=== PATIENT | female | born 1995 | race Caucasian/White ===

== ENCOUNTER → 2016-05-28 | Outpatient (CLI) | payer OTHER | END | disposition home or self-care (01) | LOC: M RAD 12:06 | PROVIDERS: ATTEND Surgery | DX: R22.2 Localized swelling, mass and lump, trunk (principal) ==

== ENCOUNTER → 2016-05-28 | Outpatient (CLI) | payer OTHER ==
[~2016-05-28] MED LIST: GASTROGRAFIN SOLUTION 30ML (Q9963) As Ordered ONE; ISOVUE-370 76% 100ML VIAL (Q9967) As Ordered ONE
--- NOTE | 2016-05-28 15:49 | REP ---
CT study of the pelvis with IV and oral contrast: History: Localized swelling. Comparison is made with today's pelvic sonography: CT contrast dose: 100 ml of Isovue [address] findings: Digital preliminary commercial teller radiograph shows an unremarkable bowel gas pattern. The urinary bladder is rather distended reaching nearly to the umbilicus. Its dimensions are 14.9 cm craniocaudal by 7.7 cm anterior to posterior by 9.7 cm medial to lateral. The uterus is tipped somewhat to the left, but unremarkable. There is a 3.5 cm cystic area in the right ovary. No left adnexal pathology is appreciated. No free fluid is seen. A portion of normal appearing appendix is seen at the superior aspect of the field of view on the right side. No abdominal wall defect is seen. No mass or adenopathy is observed. Small and large intestinal bowel loops are unremarkable. No bony destructive lesion is seen. There is a low density oval-shaped lesion consistent with a cyst in the soft tissues just distal to and posterior to the tip of the coccyx. This may be a pilonidal cyst. It measures 4.3 by 3.4 x 2.3 cm. It extends to the overlying skin just to the right of the gluteal crease. No surrounding inflammation. Impression: Dilated urinary bladder at the time of this scan. 3.5 cm low density cystic lesion right ovary. There is an apparent pilonidal cyst just to the right of midline 4.3 cm in greatest diameter at the tip of the coccyx. Signed by Dkue Nicholson MD 05/28/2016 04:23 P
--- NOTE | 2016-05-28 15:58 | REP ---
Pelvic sonography: History: Polycystic ovary disease. Irregular bleeding. Findings: Transabdominal and transvaginal scanning are performed. Uterine dimensions are normal at 5.9 x 2.8 x 4.0 cm. Endometrial echo is 0.8 cm thick and centrally placed. A small quantity of fluid is seen in the cul-de-sac. No focal uterine mass lesion is seen. The right ovary measures 3.5 x 2.9 x 3.6 cm. Its Doppler flow is normal with resistive index 0.68. There is a 3.1 x 2.9 x 2.2 cm cyst in the right ovary, which appears simple sonographically. In the remainder of the right ovary there are multiple peripherally located tiny cysts. The left ovary measures 2.3 x 2.2 x 1.6 cm. It has many small follicles within it as well. Its Doppler flow is normal. Resistive index 0.72. Impression: 3.1 cm unilocular simple cyst right ovary. No other abnormality. Signed by Duke Nicholson MD 05/28/2016 04:24 P
== END | disposition home or self-care (01) ==
LOC: M RAD 12:14
PROVIDERS: ATTEND Obstetrics & Gynecology
DX: Z11.3 Encounter for screening for infections with a predominantly sexual mode of transmission (principal); N93.9 Abnormal uterine and vaginal bleeding, unspecified; E28.2 Polycystic ovarian syndrome; L05.91 Pilonidal cyst without abscess
CPT/HCPCS: 72193; 76830; 76856; 87491; 87591; 93976; Q9963; Q9967

== ENCOUNTER → 2016-08-30 | Day surgery (SDC) | payer OTHER ==
[~2016-08-30] VITALS: Ht 157.5 cm; Wt 61.2 kg
[~2016-08-30] MED LIST changes: -GASTROGRAFIN SOLUTION 30ML (Q9963) As Ordered ONE; -ISOVUE-370 76% 100ML VIAL (Q9967) As Ordered ONE; +LIDOCAINE 2% INJ 100 MG/5 ML SDV (FOR ANES.) As Ordered ONE; +LIDOCAINE W/EPINEPHRINE 1% 20ML VIAL As Ordered ONE; +LR 1,000 ML IV SCH; +METOCLOPRAMIDE INJ 10MG/2ML VIAL (J2765) IV PRN; +MIDAZOLAM INJ 2 MG/2 ML VIAL (J2250) As Ordered ONE; +NORCO, ANEXSIA 5/325MG TABLET (HYDROcodone/ACETAMINOPHEN) PO PRN; +ONDANSETRON 4MG/2ML VIAL (J2405) IV PRN; +PERCOCET 5MG/325MG TAB PO PRN; +PROPOFOL 200 MG/20 ML VIAL As Ordered ONE; +SPIR25TA2 PO; +fentaNYL 100 MCG/2 ML INJECTION (J3010) As Ordered ONE; +fentaNYL 100 MCG/2 ML INJECTION (J3010) IV PRN
[2016-08-30 06:38] LABS: CONTROL LINE UCG INT CTR LINE PRESENT
[2016-08-30 10:30] VITALS: BP 117/63
--- NOTE | 2016-08-30 17:00 | RO ---
DATE OF PROCEDURE: 08/30/2016 PREOPERATIVE DIAGNOSIS: Gluteal mass. POSTOPERATIVE DIAGNOSIS: Gluteal mass. PROCEDURE: Excision of gluteal mass. SURGEON: Dr. Eduardo Enciso PROPOSAL MANAGER: None. ANESTHESIA: Spinal COMPLICATIONS: None. ESTIMATED BLOOD LOSS: 5 mL. INDICATIONS FOR PROCEDURE: The patient is a 21-year-old female who presents with a lump just off of midline of her gluteus. The mass has increased in size over the last few weeks. Recommendation was to proceed with excision. Risks and benefits of the procedure not limited to but including bleeding, infection and need for further surgery or procedure were discussed in detail with the patient. Informed consent was obtained and procedure was planned. DESCRIPTION OF PROCEDURE: The patient was brought back to operating room one, after sufficient spinal sedation, she was placed in the prone position. Next, the presacral area was sterilely prepped and draped with Betadine. Next, time-out was done to confirm proper patient, proper procedure. Following that, a 3 cm incision was made overlying the center of this lesion, cyst wall was encountered. Elliptical incision was then created around a 2 cm area where it was connected to the skin surface. Once this was created, the cyst was carefully dissected free circumferentially to a depth of about 4 cm. It appeared to come just lateral from the sacrum. Cyst was removed intact. There was no spillage of any contents. Once the cyst was removed, electrocautery was used to control hemostasis. The subcutaneous tissues were reapproximated with interrupted #3-0 Vicryl subcuticular sutures, interrupted #3-0 nylon suture was then used to approximate the skin edges. Cyst ended up measuring about 2 x 4-1/2 cm in size. The patient tolerated the procedure well and was sent to post-anesthesia care unit (PACU) in stable condition.
== END ==
LOC: M SDC 06:03
PROVIDERS: ATTEND Surgery
DX: L72.0 Epidermal cyst (principal); J00 Acute nasopharyngitis [common cold]; Z79.899 Other long term (current) drug therapy
CPT/HCPCS: 11402; 12031; 84703; 88304; J0690; J2250; J3010

== ENCOUNTER → 2016-11-24 | Outpatient (CLI) | payer OTHER ==
[~2016-11-24] MED LIST changes: -LIDOCAINE 2% INJ 100 MG/5 ML SDV (FOR ANES.) As Ordered ONE; -LIDOCAINE W/EPINEPHRINE 1% 20ML VIAL As Ordered ONE; -LR 1,000 ML IV SCH; -METOCLOPRAMIDE INJ 10MG/2ML VIAL (J2765) IV PRN; -MIDAZOLAM INJ 2 MG/2 ML VIAL (J2250) As Ordered ONE; -NORCO, ANEXSIA 5/325MG TABLET (HYDROcodone/ACETAMINOPHEN) PO PRN; -ONDANSETRON 4MG/2ML VIAL (J2405) IV PRN; -PERCOCET 5MG/325MG TAB PO PRN; -PROPOFOL 200 MG/20 ML VIAL As Ordered ONE; -fentaNYL 100 MCG/2 ML INJECTION (J3010) As Ordered ONE; -fentaNYL 100 MCG/2 ML INJECTION (J3010) IV PRN
[2016-11-24 16:39] LABS: POTASSIUM SERUM 4.5 MEQ/L (3.5-5.1)
== END ==
LOC: M WUC 12:08
PROVIDERS: ATTEND Nurse Practitioner Family
DX: L70.0 Acne vulgaris (principal); Z51.81 Encounter for therapeutic drug level monitoring; Z79.899 Other long term (current) drug therapy

== ENCOUNTER → 2017-06-05 | Outpatient (CLI) | payer OTHER ==
[2017-06-05 16:58] LABS: BASO # 0.1 10^3/uL (0.0-0.2); BASO % 0.4 % (0.0-1.0); EOS # 0.1 10^3/uL (0.0-0.50); EOS % 0.7 % (0.0-3.0); HEMATOCRIT 43.2 % (36.0-47.0); HEMOGLOBIN 14.7 g/dl (12.0-16.0); IMMATURE GRANULOCYTE % 0.3 % (0-3.0); LYMPH # 2.1 10^3/uL (1.5-6.5); LYMPH % 17.5 % (24.0-44.0); MEAN CORPUSCULAR HEMOGLOBIN 31.5 pg (27.0-33.0); MEAN CORPUSCULAR VOLUME 92.5 fl (80.0-96.0); MONO # 0.7 10^3/uL (0.0-0.8); MONO % 6.1 % (0.0-5.0); PLATELET COUNT, AUTOMATED 234 10^3/uL (150-450); RED BLOOD COUNT 4.67 10^6/uL (4.00-5.40); RED CELL DISTRIBUTION WIDTH 12.1 % (11.5-14.5)
[2017-06-05 17:14] LABS: ALBUMIN 3.8 GM/DL (3.2-5.2); ALBUMIN/GLOBULIN RATIO 1.15 (1.00-1.93); ALKALINE PHOSPHATASE 56 U/L (45-117); ALT/SGPT 15 U/L (12-78); ANION GAP 7 MEQ/L (8-16); AST/SGOT 12 U/L (7-37); BILIRUBIN,TOTAL 0.4 MG/DL (0.2-1.0); BLOOD UREA NITROGEN 11 MG/DL (7-18); CARBON DIOXIDE LEVEL 29 MEQ/L (21-32); CHLORIDE LEVEL 105 MEQ/L (98-107); CREATININE FOR GFR 0.55 MG/DL (0.55-1.30); FREE T4 0.84 NG/DL (0.78-1.33); GLUCOSE, FASTING 78 MG/DL (70-100); POTASSIUM SERUM 4.7 MEQ/L (3.5-5.1); SODIUM LEVEL 141 MEQ/L (136-145); TOTAL PROTEIN 7.1 GM/DL (6.4-8.2)
[2017-06-08 00:07] LABS: EBV VIRAL CAPSID AG IgM <36.0 U/mL (0.0-35.9)
== END ==
LOC: M ADAMS 12:52
DX: R53.83 Other fatigue (principal)
CPT/HCPCS: 84443

== ENCOUNTER → 2017-09-08 | Outpatient (CLI) | payer OTHER ==
[2017-09-08 19:49] LABS: BASO % 0.4 % (0.0-1.0); EOS # 0.1 10^3/uL (0.0-0.50); EOS % 0.7 % (0.0-3.0); HEMATOCRIT 40.2 % (36.0-47.0); HEMOGLOBIN 13.7 g/dl (12.0-15.5); IMMATURE GRANULOCYTE % 0.1 % (0-3.0); LYMPH # 2.9 10^3/uL (1.5-6.5); LYMPH % 34.8 % (24.0-44.0); MEAN CORPUSCULAR HEMOGLOBIN 32.2 pg (27.0-33.0); MEAN CORPUSCULAR HGB CONC 34.1 g/dl (32.0-36.5); MEAN CORPUSCULAR VOLUME 94.4 fl (80.0-96.0); MONO # 0.7 10^3/uL (0.0-0.8); MONO % 8.2 % (0.0-5.0); NEUTROPHILS # 4.7 10^3/uL (1.8-7.7); NEUTROPHILS % 55.8 % (36.0-66.0); PLATELET COUNT, AUTOMATED 206 10^3/uL (150-450); RED BLOOD COUNT 4.26 10^6/uL (4.00-5.40); RED CELL DISTRIBUTION WIDTH 11.9 % (11.5-14.5); WHITE BLOOD COUNT 8.4 10^3/uL (4.0-10.0)
[2017-09-08 20:16] LABS: TOTAL 25(OH) VITAMIN D 19.7 NG/ML (30.0-100.0)
[2017-09-08 20:17] LABS: ALBUMIN 3.7 GM/DL (3.2-5.2); ALBUMIN/GLOBULIN RATIO 1.16 (1.00-1.93); ALKALINE PHOSPHATASE 48 U/L (45-117); ALT/SGPT 23 U/L (12-78); ANION GAP 6 MEQ/L (8-16); AST/SGOT 14 U/L (7-37); BILIRUBIN,TOTAL 0.3 MG/DL (0.2-1.0); BLOOD UREA NITROGEN 12 MG/DL (7-18); CALCIUM LEVEL 8.7 MG/DL (8.5-10.1); CARBON DIOXIDE LEVEL 29 MEQ/L (21-32); CHLORIDE LEVEL 106 MEQ/L (98-107); CREATININE FOR GFR 0.62 MG/DL (0.55-1.30); FREE T4 0.83 NG/DL (0.76-1.46); GLOMERULAR FILTRATION RATE > 60.0 (>60); GLUCOSE, FASTING 79 MG/DL (70-100); SODIUM LEVEL 141 MEQ/L (136-145); TOTAL PROTEIN 6.9 GM/DL (6.4-8.2)
[2017-09-15 14:16] LABS: STREP PNEUMO TYPE 1 3.5 ug/mL (>1.3); STREP PNEUMO TYPE 12F 0.4 ug/mL (>1.3); STREP PNEUMO TYPE 14 5.3 ug/mL (>1.3); STREP PNEUMO TYPE 18C 1.8 ug/mL (>1.3); STREP PNEUMO TYPE 19A 4.1 ug/mL (>1.3); STREP PNEUMO TYPE 19F 8.4 ug/mL (>1.3); STREP PNEUMO TYPE 23F 2.4 ug/mL (>1.3); STREP PNEUMO TYPE 3 1.1 ug/mL (>1.3); STREP PNEUMO TYPE 4 0.5 ug/mL (>1.3); STREP PNEUMO TYPE 6B 22.6 ug/mL (>1.3); STREP PNEUMO TYPE 7F 0.8 ug/mL (>1.3); STREP PNEUMO TYPE 8 2.4 ug/mL (>1.3); STREP PNEUMO TYPE 9N 1.1 ug/mL (>1.3); STREP PNEUMO TYPE 9V 2.8 ug/mL (>1.3)
== END ==
LOC: M WUC 16:44
DX: R53.83 Other fatigue (principal)
CPT/HCPCS: 84443

== ENCOUNTER → 2017-11-03 | Outpatient (REF) | payer OTHER | LOC: M LAB REF 16:45 | DX: J02.9 Acute pharyngitis, unspecified (principal) | CPT/HCPCS: 87081 ==

== ENCOUNTER → 2017-12-08 | Outpatient (CLI) | payer OTHER ==
[2017-12-08 19:38] LABS: ANION GAP 7 MEQ/L (8-16); CARBON DIOXIDE LEVEL 30 MEQ/L (21-32); CHLORIDE LEVEL 105 MEQ/L (98-107); POTASSIUM SERUM 4.1 MEQ/L (3.5-5.1); SODIUM LEVEL 142 MEQ/L (136-145)
== END ==
LOC: M WUC 16:11
DX: Z51.81 Encounter for therapeutic drug level monitoring (principal); Z79.899 Other long term (current) drug therapy; L70.0 Acne vulgaris
CPT/HCPCS: 80051

== ENCOUNTER → 2018-01-24 | Outpatient (CLI) | payer OTHER ==
[2018-01-24 19:25] LABS: BASO % 0.1 % (0.0-1.0); EOS % 0.5 % (0.0-3.0); HEMATOCRIT 39.5 % (36.0-47.0); HEMOGLOBIN 13.3 g/dl (12.0-15.5); IMMATURE GRANULOCYTE % 0.3 % (0-3.0); LYMPH # 2.8 10^3/uL (1.5-6.5); LYMPH % 35.4 % (24.0-44.0); MEAN CORPUSCULAR HEMOGLOBIN 31.6 pg (27.0-33.0); MEAN CORPUSCULAR HGB CONC 33.7 g/dl (32.0-36.5); MEAN CORPUSCULAR VOLUME 93.8 fl (80.0-96.0); MONO # 0.5 10^3/uL (0.0-0.8); MONO % 6.3 % (0.0-5.0); NEUTROPHILS # 4.5 10^3/uL (1.8-7.7); NEUTROPHILS % 57.4 % (36.0-66.0); PLATELET COUNT, AUTOMATED 183 10^3/uL (150-450); RED BLOOD COUNT 4.21 10^6/uL (4.00-5.40); WHITE BLOOD COUNT 7.8 10^3/uL (4.0-10.0)
== END ==
LOC: M SMT 15:23
DX: Z13.0 Encounter for screening for diseases of the blood and blood-forming organs and certain disorders involving the immune mechanism (principal)

== ENCOUNTER → 2018-09-13 | Outpatient (REF) | payer OTHER ==
[~2018-09-13] MED LIST changes: +SPIR-10 PO; -SPIR25TA2 PO
[2018-09-13 22:36] LABS: CHLAMYDIA DNA AMPLIFICATION NEGATIVE (NEGATIVE); GC DNA AMPLIFICATION NEGATIVE (NEGATIVE)
== END ==
LOC: M LAB REF 17:05
PROVIDERS: ATTEND Obstetrics & Gynecology
DX: Z11.3 Encounter for screening for infections with a predominantly sexual mode of transmission (principal)

== ENCOUNTER → 2019-08-01 | Outpatient (REF) | payer OTHER | LOC: M LAB REF 16:43 | PROVIDERS: ATTEND Physician Assistant | DX: J02.9 Acute pharyngitis, unspecified (principal) ==

== ENCOUNTER → 2019-09-03 | Outpatient (REF) | payer OTHER ==
[2019-09-03 17:50] LABS: BASO % 0.5 % (0.0-1.0); EOS # 0.1 10^3/uL (0.0-0.5); EOS % 0.8 % (0.0-3.0); HEMATOCRIT 40.6 % (36.0-47.0); HEMOGLOBIN 14.2 g/dl (12.0-15.5); LYMPH # 2.6 10^3/uL (1.5-5.0); LYMPH % 35.7 % (24.0-44.0); MEAN CORPUSCULAR HEMOGLOBIN 32.9 pg (27.0-33.0); MEAN CORPUSCULAR VOLUME 94.2 fl (80.0-96.0); MONO # 0.5 10^3/uL (0.0-0.8); MONO % 6.9 % (0.0-5.0); NEUTROPHILS # 4.1 10^3/uL (1.5-8.5); NEUTROPHILS % 55.8 % (36.0-66.0); PLATELET COUNT, AUTOMATED 194 10^3/uL (150-450); RED BLOOD COUNT 4.31 10^6/uL (4.00-5.40); WHITE BLOOD COUNT 7.4 10^3/uL (4.0-10.0)
[2019-09-03 17:59] LABS: APPEARANCE, URINE CLEAR (CLEAR); BACTERIA, URINE AUTO NEGATIVE (NEGATIVE); BILIRUBIN, URINE AUTO NEGATIVE (NEGATIVE); BLOOD, URINE BLOOD NEGATIVE (NEGATIVE); COLOR, URINE COLORLESS (YELLOW); GLUCOSE, URINE (UA) AUTO NEGATIVE (NEGATIVE); KETONE, URINE AUTO NEGATIVE (NEGATIVE); LEUKOCYTE ESTERASE, URINE AUTO NEGATIVE (NEGATIVE); NITRITE, URINE AUTO NEGATIVE (NEGATIVE); PROTEIN, URINE AUTO NEGATIVE (NEGATIVE); RBC, URINE AUTO 0 /HPF (0-3); SPECIFIC GRAVITY URINE AUTO 1.003 (1.002-1.035); SQUAMOUS EPITHELIAL CELL UR AU 0 /HPF (0-6); UROBILINOGEN, URINE AUTO 0.2 mg/dL (0.0-2.0); WBC, URINE AUTO 0 /HPF (0-3)
[2019-09-06 00:06] LABS: G6PD2 4.38 x10E6/uL (3.77-5.28)
== END ==
LOC: M LABDRWAD 16:18
PROVIDERS: ATTEND Physician Assistant
DX: Z71.84 Encounter for health counseling related to travel (principal); Z00.01 Encounter for general adult medical examination with abnormal findings

== ENCOUNTER → 2019-09-03 | Outpatient (REF) | payer OTHER ==
[2019-09-03 17:46] LABS: POTASSIUM SERUM 4.4 MEQ/L (3.5-5.1)
== END ==
LOC: M LABDRWAD 16:21
PROVIDERS: ATTEND Nurse Practitioner Family
DX: L70.0 Acne vulgaris (principal); Z51.81 Encounter for therapeutic drug level monitoring; Z79.899 Other long term (current) drug therapy

== ENCOUNTER → 2021-10-21 | Outpatient (REF) | payer OTHER ==
[2021-10-21 17:53] LABS: BASO # 0.1 10^3/uL (0.0-0.2); BASO % 0.7 % (0.0-1.0); EOS % 0.5 % (0.0-3.0); HEMATOCRIT 42.6 % (36.0-47.0); HEMOGLOBIN 14.3 g/dl (12.0-15.5); LYMPH # 2.6 10^3/uL (1.5-5.0); LYMPH % 34.6 % (24.0-44.0); MEAN CORPUSCULAR HEMOGLOBIN 31.8 pg (27.0-33.0); MEAN CORPUSCULAR HGB CONC 33.6 g/dl (32.0-36.5); MEAN CORPUSCULAR VOLUME 94.9 fl (80.0-96.0); MONO # 0.5 10^3/uL (0.0-0.8); MONO % 6.7 % (2.0-8.0); NEUTROPHILS # 4.4 10^3/uL (1.5-8.5); NEUTROPHILS % 57.2 % (36.0-66.0); RED BLOOD COUNT 4.49 10^6/uL (4.00-5.40); WHITE BLOOD COUNT 7.6 10^3/uL (4.0-10.0)
[2021-10-21 17:54] LABS: ALBUMIN 4.1 GM/DL (3.2-5.2); ALT/SGPT 20 U/L (12-78); BILIRUBIN,TOTAL 0.6 MG/DL (0.2-1.0); BLOOD UREA NITROGEN 9 MG/DL (7-18); CALCIUM LEVEL 9.6 MG/DL (8.5-10.1); CARBON DIOXIDE LEVEL 27 MEQ/L (21-32); CHLORIDE LEVEL 108 MEQ/L (98-107); CREATININE FOR GFR 0.65 MG/DL (0.55-1.30); FREE T4 1.03 NG/DL (0.76-1.46); GLOMERULAR FILTRATION RATE > 60.0 (>60); GLUCOSE, FASTING 93 MG/DL (70-100); POTASSIUM SERUM 3.9 MEQ/L (3.5-5.1); SODIUM LEVEL 141 MEQ/L (136-145); TOTAL PROTEIN 7.1 GM/DL (6.4-8.2)
== END ==
LOC: M LABWUC 16:01
PROVIDERS: ATTEND Physician Assistant
DX: R53.83 Other fatigue (principal)

== ENCOUNTER → 2022-03-31 | Outpatient (CLI) | payer OTHER | LOC: M RAD 09:34 | PROVIDERS: ATTEND Family Medicine | DX: R10.811 Right upper quadrant abdominal tenderness (principal) ==

== ENCOUNTER → 2022-04-29 | Outpatient (REF) | payer OTHER ==
[2022-04-29 19:07] LABS: GC DNA AMPLIFICATION NEGATIVE (NEGATIVE)
== END ==
LOC: M LAB REF 16:58
PROVIDERS: ATTEND Nurse Practitioner Adult Health
DX: Z11.3 Encounter for screening for infections with a predominantly sexual mode of transmission (principal)

== ENCOUNTER → 2022-05-31 | Outpatient (CLI) | payer OTHER | LOC: M PLALAB 14:03 → M PLAIMG 14:03 | PROVIDERS: ATTEND Nurse Practitioner Adult Health | DX: R68.84 Jaw pain (principal) ==

== ENCOUNTER → 2022-06-24 | Outpatient (CLI) | payer OTHER | LOC: M PLARAD 08:48 | PROVIDERS: ATTEND Chiropractor | DX: M54.13 Radiculopathy, cervicothoracic region (principal); M99.01 Segmental and somatic dysfunction of cervical region; M51.36 Other intervertebral disc degeneration, lumbar region; M99.03 Segmental and somatic dysfunction of lumbar region; M50.20 Other cervical disc displacement, unspecified cervical region ==

== ENCOUNTER → 2022-07-02 | Outpatient (CLI) | payer OTHER | LOC: M RAD 14:28 | PROVIDERS: ATTEND Nurse Practitioner Adult Health | DX: R68.84 Jaw pain (principal) ==